=== PATIENT | male | born 1940 | race Hispanic/Latino ===

== ENCOUNTER 2024-08-13 13:51 | Emergency (ER) | payer OTHER ==
[~2024-08-13] VITALS: Ht 182.9 cm; Wt 49.9 kg
[~2024-08-13 13:51] MED LIST: FISH OIL PO; MVI PO; VITAMIN D PO
[2024-08-13] MEDS: 0.9%NACL 1000ML 1,000 ML IV ONE (14:27)
[2024-08-13] MEDS: ondanSETRON 4MG INJ IVP ONE (14:29)
[2024-08-13] MEDS: morPHINE 2 MG SYG IVP ONE (14:30)
[2024-08-13 14:36] LABS: BASOPHILS # (AUTO) 0.03 K/uL (0.00-0.20); BASOPHILS % (AUTO) 0.4 % (0.0-5.0); EOSINOPHILS # (AUTO) 0.09 K/uL (0.00-0.70); EOSINOPHILS % (AUTO) 1.1 % (0.0-8.0); HEMATOCRIT 41.4 % (42-54); IMMATURE GRANULOCYTE ABSOLUTE 0.03 K/uL (0-1); LYMPHOCYTES # (AUTO) 0.6 K/uL (1.0-4.8); LYMPHOCYTES % (AUTO) 7.5 % (21.0-51.0); MEAN CORPUSCULAR HEMOGLOBIN 30.5 pg (27.0-33.0); MEAN CORPUSCULAR HGB CONC 33.6 g/dL (32.0-36.0); MEAN CORPUSCULAR VOLUME 90.8 fL (79-99); MONOCYTES # (AUTO) 0.8 K/uL (0.1-1.0); MONOCYTES % (AUTO) 9.6 % (3.0-13.0); NEUTROPHILS # (AUTO) 6.7 K/uL (1.8-7.7); PLATELET COUNT (AUTO) 262 K/uL (130-400); RED BLOOD CELL COUNT(AUTO) 4.56 MIL/uL (4.50-6.20); WHITE BLOOD COUNT (AUTO) 8.3 K/uL (4.8-10.8)
[2024-08-13 14:59] LABS: CREATININE 1.2 mg/dL (0.5-1.3); POTASSIUM 3.6 mmol/L (3.5-5.1)
[2024-08-13] MEDS ORDERED: IOHEXOL 350 MG/ML 100ML INFUS..BTL IV ONE (15:03)
[2024-08-13 16:34] VITALS: BP 133/75; PULSE 98; RESP 16; TEMP 98.3; O2SAT 98
[2024-08-13 17:13] LABS: APPEARANCE,URINE CLEAR (CLEAR); BILIRUBIN,URINE NEGATIVE (NEGATIVE); COLOR,URINE LIGHT-YELLOW (YELLOW); GLUCOSE, URINE (UA) NEGATIVE (NEGATIVE); KETONES,URINE NEGATIVE (NEGATIVE); LEUKOCYTE ESTERASE ,URINE NEGATIVE Leu/uL (NEGATIVE); NITRATE,URINE NEGATIVE (NEGATIVE); OCCULT BLOOD,URINE NEGATIVE (NEGATIVE); PROTEIN,URINE 10 mg/dL (NEGATIVE); UROBILINOGEN,URINE 0.2 mg/dL (0.2-1.0)
[2024-08-13 17:14] LABS: ADD UA MICROSCOPIC YES
[2024-08-13 17:34] LABS: BACTERIA,URINE None Seen /HPF (None Seen)
[2024-08-13 17:37] LABS: MUCUS,URINE Rare LPF (None Seen)
== END 2024-08-13 18:01 | disposition left against medical advice (07) ==
LOC: EDH 13:51
DX: R11.2 Nausea with vomiting, unspecified (principal); E86.0 Dehydration; G89.18 Other acute postprocedural pain; Z79.899 Other long term (current) drug therapy; Z91.030 Bee allergy status; Z98.890 Other specified postprocedural states
CPT/HCPCS: 99285; 74177; 96374; 96361; 96375; 80048; 83690; 85025; 81001; 36415; J2270; J7030; J2405; Q9967

== ENCOUNTER 2024-08-21 09:25 | Emergency (ER) | payer OTHER ==
[~2024-08-21] VITALS: Ht 182.9 cm; Wt 50.3 kg
[2024-08-21 11:09] VITALS: BP 129/55; PULSE 82; RESP 16; TEMP 97.9; O2SAT 99
== END 2024-08-21 11:12 | disposition home or self-care (01) ==
LOC: EDH 09:25
DX: R33.9 Retention of urine, unspecified (principal); N40.0 Benign prostatic hyperplasia without lower urinary tract symptoms; Z91.030 Bee allergy status
CPT/HCPCS: 51702